=== PATIENT | male | born 1995 | race Caucasian/White ===

== ENCOUNTER 2017-07-03 21:46 | Emergency (ER) | payer BC, MEDICAID ==
[2017-07-03] MEDS ORDERED: Bacitracin 500 Units/gm Oint Foilpak UD TOP ONE (22:52)
[2017-07-03] MEDS ORDERED: Tdap Vaccine 0.5 ml Vial (10-64 yrs) IM ONE (22:52)
[2017-07-03] MEDS ORDERED: Bacitracin 500 Units/gm Oint Foilpak UD ONE (22:56)
[2017-07-03] MEDS ORDERED: Tetanus/Diphtheria Toxoids 0.5 ml Syringe IM ONE (22:56)
[2017-07-03 23:08] VITALS: BP 110/68; PULSE 58; RESP 18; TEMP 98.8; O2SAT 98
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
== END 2017-07-04 00:22 | disposition home or self-care (01) ==
LOC: C.ER 21:46
DX: S40.011A Contusion of right shoulder, initial encounter (principal); S00.83XA Contusion of other part of head, initial encounter; S09.90XA Unspecified injury of head, initial encounter; V19.3XXA Pedal cyclist (driver) (passenger) injured in unspecified nontraffic accident, initial encounter; Y93.55 Activity, bike riding; Z23 Encounter for immunization

== ENCOUNTER 2017-09-23 16:32 | Emergency (ER) | payer BC ==
[2017-09-23 16:40] VITALS: BP 119/78; PULSE 55; RESP 18; TEMP 98.3; O2SAT 98
--- NOTE | 2017-09-23 17:27 | C.PDOC ---
History Of Present Illness Patient c/o left ankle/foot pain from last night after he twisted it while playing basketball. Patient denies any other injury. Time Seen by Provider: 09/23/17 16:46 Chief Complaint (Nursing): Lower Extremity Problem/Injury Past Medical History Reviewed: Historical Data, Nursing Documentation, Vital Signs Vital Signs: Last Vital Signs Temp 98.3 F 09/23/17 16:38 Pulse 55 L 09/23/17 16:38 Resp 18 09/23/17 16:38 BP 119/78 09/23/17 16:38 Pulse Ox 98 09/23/17 16:38 Family History: States: Unknown Family Hx - Social History Hx Alcohol Use: No Hx Substance Use: No - Immunization History Hx Tetanus Toxoid Vaccination: No Hx Influenza Vaccination: No Hx Pneumococcal Vaccination: No Review Of Systems Except As Marked, All Systems Reviewed And Found Negative. Physical Exam - Physical Exam Appears: Well, Non-toxic, No Acute Distress Skin: Normal Color, Warm, No Rash Head: Atraumatic, Normacephalic Eye(s): bilateral: Normal Inspection Extremity: Tenderness (mild tenderness diffusely of the left ankle and dorsum of the foot. ) ED Course And Treatment O2 Sat by Pulse Oximetry: 98 - Other Rad Foot and ankle xray X-Ray: Interpreted by Me Interpretation: No fractures/dislocations/bony lesions Progress Note: Patient was treated with Ibuprofen po ankle aircast, ortho shoe and crutches. Patient is stable to be d/c home with Ortho follow up. Disposition - Disposition Referrals: Muriel Kumar MD [Staff Provider] - Disposition: HOME/ ROUTINE Disposition Time: 17:29 Condition: STABLE Additional Instructions: Follow up with Orthopedist within 1-2 days. Return to ED if feel worse. Prescriptions: Ibuprofen [Motrin Tab] 400 mg PO Q8 #30 tab Instructions: Ankle Sprain (DC) - Clinical Impression Clinical Impression: Ankle sprain
--- NOTE | 2017-09-24 09:34 | RAD ---
PROCEDURE: Left Foot Radiographs. HISTORY: injury COMPARISON: None. FINDINGS: BONES: Bone alignment and mineralization are normal. There is no acute displaced fracture or bone destruction. JOINTS: Normal. SOFT TISSUES: Normal. OTHER FINDINGS: None. IMPRESSION: No acute fracture or dislocation.
--- NOTE | 2017-09-24 09:35 | RAD ---
PROCEDURE: Left Ankle Radiographs. HISTORY: Injury COMPARISON: None FINDINGS: BONES: Bone alignment and mineralization are normal. There is no acute displaced fracture or bone destruction. JOINTS: Normal. Ankle mortise maintained. Talar dome intact SOFT TISSUES: Normal. OTHER FINDINGS: None. IMPRESSION: No acute fracture or dislocation.
== END 2017-09-23 17:40 | disposition home or self-care (01) ==
LOC: C.ER 16:32
DX: S93.402A Sprain of unspecified ligament of left ankle, initial encounter (principal); X50.1XXA Overexertion from prolonged static or awkward postures, initial encounter; Y93.67 Activity, basketball

== ENCOUNTER 2018-04-26 02:08 | Emergency (ER) | payer BC ==
[2018-04-26 02:16] VITALS: TEMP 98.5
[2018-04-26] MEDS ORDERED: Tetanus/Diphtheria Toxoids 0.5 ml Syringe IM ONE ×2 (02:45→02:55)
--- NOTE | 2018-04-26 02:51 | C.PDOC ---
History Of Present Illness 23 year old male presents to the ED for evaluation of left foot puncture wound that occurred at 19:00. Patient was wearing work boots, accidentally stepped on a nail. Patient states he completely removed the nail and washed the area and applied some alcohol. Patient denies fever, chills, weakness, numbness, FB sensation. L FOOT PUNCTURE WOUND @ 1900. PS WEARING WORK BOOTS, ACCID STEPPED ON NAIL. PS NAIL COMPLETELY REMOVED AND WASHED, ALCOHOL APPLIED. DENIES FB SENSATION. EXAM NAD EXT L FOOT NO SWELL DEFORM SKIN +PUNCTURE WOUND PLANTAR BELOW 1 METATARS. NO ERYTHEMA, PALP FB, DC, ACTIVE BLEED NEURO INTACT Time Seen by Provider: 04/26/18 02:31 Chief Complaint (Nursing): Lower Extremity Problem/Injury History Per: Patient History/Exam Limitations: no limitations Onset/Duration Of Symptoms: Hrs (19:00) Current Symptoms Are (Timing): Still Present Recent travel outside of the [place]: No Additional History Per: Patient - Ankle/Foot Description Of Injury: Other Past Medical History Reviewed: Historical Data, Nursing Documentation, Vital Signs Vital Signs: Last Vital Signs Temp 98.5 F 04/26/18 02:14 Pulse 73 04/26/18 02:14 Resp 22 04/26/18 02:14 BP 122/98 H 04/26/18 02:14 Pulse Ox 100 04/26/18 02:14 - Medical History PMH: No Chronic Diseases Surgical History: No Surg Hx Family History: States: Unknown Family Hx - Social History Hx Alcohol Use: No Hx Substance Use: No - Immunization History Hx Tetanus Toxoid Vaccination: No Hx Influenza Vaccination: No Hx Pneumococcal Vaccination: No Review Of Systems Constitutional: Negative for: Fever, Chills Cardiovascular: Negative for: Chest Pain Respiratory: Negative for: Shortness of Breath Gastrointestinal: Negative for: Nausea, Vomiting, Abdominal Pain Musculoskeletal: Positive for: Foot Pain Skin: Negative for: Rash Neurological: Negative for: Weakness, Numbness Physical Exam - Physical Exam Appears: Non-toxic, No Acute Distress Skin: Normal Color, Warm, Dry, Other ((+) puncture wound to plantar aspect below 1st metarsal left foot. No erythema, FB palpated, discharge, active bleeding) Head: Atraumatic, Normacephalic Eye(s): bilateral: Normal Inspection Neck: Normal ROM, Supple Chest: Symmetrical Cardiovascular: Rhythm Regular Respiratory: Normal Breath Sounds, No Rales, No Rhonchi, No Wheezing Extremity: Normal ROM, No Tenderness, Capillary Refill (< 2 seconds), No Swelling Pulses: Left Dorsalis Pedis: Normal, Right Dorsalis Pedis: Normal Neurological/Psych: Oriented x3, Normal Speech, Normal Cognition, Normal Motor, Normal Sensation Gait: Steady ED Course And Treatment O2 Sat by Pulse Oximetry: 100 (ON RA) Pulse Ox Interpretation: Normal - Other Rad l foot X-Ray: Interpreted by Me (NEG) Medical Decision Making Medical Decision Making: PLan: * Avelox 400 mgt PO * Motrin 600 mg PO * tetanus * Left Foot X-Ray Disposition Counseled Patient/Family Regarding: Studies Performed, Diagnosis, Need For Followup, Rx Given - Disposition Referrals: [facility] [Outside] [facility] [Outside] [facility] [Other] Disposition: HOME/ ROUTINE Disposition Time: 03:18 Condition: IMPROVED Prescriptions: Ibuprofen [Motrin] 600 mg PO Q6 #30 tab levoFLOXacin [Levaquin] 500 mg PO DAILY #7 tab Instructions: Wound Care (DC) Forms: [facility] (Nepali), Work Excuse - Clinical Impression Clinical Impression: Puncture wound of foot - Scribe Statement The provider has reviewed the documentation as recorded by the Scribe Alli Hillman All medical record entries made by the Scribe were at my direction and personally dictated by me. I have reviewed the chart and agree that the record accurately reflects my personal performance of the history, physical exam, medical decision making, and the department course for this patient. I have also personally directed, reviewed, and agree with the discharge instructions and disposition.
[2018-04-26 03:27] VITALS: BP 126/89; PULSE 70; RESP 16
[2018-04-26 03:57] VITALS: O2SAT 100
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
== END 2018-04-26 03:27 | disposition home or self-care (01) ==
LOC: C.ER 02:08
DX: S91.332A Puncture wound without foreign body, left foot, initial encounter (principal); W45.0XXA Nail entering through skin, initial encounter; Z23 Encounter for immunization